=== PATIENT | female | born 1965 | race Caucasian/White ===

== ENCOUNTER 2021-06-27 15:13 | Emergency (ER) | payer OTHER, MEDICARE ==
[~2021-06-27] VITALS: Ht 172.7 cm; Wt 74.0 kg
[2021-06-27 16:03] LABS: HEMATOCRIT 36.6 % (37.0-47.0); IMMATURE GRANULOCYTES 0.5 % (0.0-5.0); MEAN CELL VOLUME 106.4 fL CALC (80.0-100.0); MEAN CORPUSCULAR HGB CONC 30.1 g/dL CAL (32.0-36.0); NEUT# 5.9 thou/uL (2.00-7.15); RED BLOOD COUNT 3.44 mill/uL (4.20-5.60); RED CELL DISTRI WIDTH 14.6 % (11.5-15.5)
[2021-06-27 16:24] LABS: ALBUMIN 3.9 g/dL (3.2-5.0); BILIRUBIN, TOTAL 0.6 mg/dL (0.0-1.4); CREATININE 1.2 mg/dL (0.5-1.0); POTASSIUM 3.2 mmol/l (3.5-5.1); TOTAL PROTEIN 6.9 g/dL (6.3-8.2)
[2021-06-27 16:27] LABS: ACT PARTIAL THROMBO TIME 19.5 SECONDS (20.0-32.5); PROTHROMBIN TIME 10.1 SECONDS (9.0-12.5)
[2021-06-27 19:45] VITALS: BP 155/80
== END 2021-06-27 19:45 | disposition short-term general hospital (02) | DRG 563 ==
LOC: ED 15:13
DX: S52.352B Displaced comminuted fracture of shaft of radius, left arm, initial encounter for open fracture type I or II (principal); S52.602B Unspecified fracture of lower end of left ulna, initial encounter for open fracture type I or II; S09.90XA Unspecified injury of head, initial encounter; R07.9 Chest pain, unspecified; M54.50 Low back pain, unspecified; V28.5XXA Motorcycle passenger injured in noncollision transport accident in traffic accident, initial encounter